=== PATIENT | female | born 1950 | race Caucasian/White ===

== ENCOUNTER 2022-04-13 09:17 | Emergency (ER) | payer MEDICARE, SELFPAY ==
[2022-04-13 09:54] VITALS: BP 174/97; PULSE 93; RESP 16; TEMP 36.6; O2SAT 98; BMI 25.7
[2022-04-13 09:56] LABS: Appearance Urine Clear (Clear); Bilirubin Urine Negative (Negative); Blood Urine Negative (Negative); Color Urine Yellow (Yellow); Glucose Urine Negative (Negative); Ketones Urine Negative (Negative); Leukocyte Esterase Urine Negative (Negative); Nitrite Urine Negative (Negative); Protein Urine Negative (Negative); Urobilinogen Urine 0.2 (0.2-1.0)
--- NOTE | 2022-04-13 10:01 | ED_ITS ---
HPI - General Adult General Time Seen by Provider: 10:02 Date Seen: 04/13/22 Chief complaint: Nausea/Vomiting Stated complaint: Nausea/frequent urination Time Seen by Provider: 04/13/22 10:00 Source: patient and RN notes reviewed Mode of arrival: ambulatory Limitations: no limitations History of Present Illness HPI narrative: Patient is a 72-year-old female coming in with concerns of weakness in her upper arms and on upper legs, nausea since having her COVID booster. 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 Alexander for this. She has also had some diarrhea the last few months but as of late that back down to normal. She historically would take something daily to help her bowels go but has not done so since January. She states she has seen her primary care provider as well as urgent care and both have done stool studies which were negative. However, the diarrhea seems to be back at [place]. She does feel hungry at times but just can not eat. She will have increased nausea and maybe some discomfort in the upper abdomen after eating. Basically the only thing she really tolerates are frozen fruit pops. She is able to drink. There has been no fevers. She just feels wiped out. No respiratory symptoms, no cardiac symptoms. She has not actually vomited. She was able to get in to the clinic tomorrow, does not see her director product and tell I believe she said May. The weakness made her more concerned. I reviewed with her that global weakness and weakness similarly affecting both sides it is not a stroke. She is relieved to hear this. She has noted some increased urinary frequency the last few days. Related Data Home Medications Medication Instructions Recorded Confirmed atorvastatin 10 mg tablet 10 mg PO DAILY 04/13/22 04/13/22 levothyroxine 88 mcg tablet 88 mcg PO DAILY 04/13/22 04/13/22 omeprazole 20 mg capsule,delayed 20 mg PO DAILY 04/13/22 04/13/22 release Allergies Allergy/AdvReac Type Severity Reaction Status Date / Time cefuroxime [From Ceftin] Allergy Mild Verified 04/13/22 09:59 sulfamethoxazole Allergy Mild Verified 04/13/22 09:59 [From Bactrim] trimethoprim [From Bactrim] Allergy Mild Verified 04/13/22 09:59 Review of Systems Status of ROS: Reports: 10 or more systems reviewed and unremarkable except as noted in History and below [facility] Social History Smoking Status: Never smoker Do you use any of these nicotine containing products: None Second hand tobacco smoke exposure: No How often do you have a drink containing alcohol: never How often do you have six or more drinks on one occasion: Never AUDIT-C Alcohol total score: 0 Non-prescribed substance use: denies use service: No Exam Const: Vital Signs, click to edit/add: Vital Signs - 24 hr 04/13/22 09:54 04/13/22 11:53 Temperature 97.9 F Pulse Rate [Right Pulse Oximeter] 93 Respiratory Rate 16 Blood Pressure [Le ft Upper Arm] 174/97 H Pulse Oximetry 98 99 Oxygen Delivery Me thod Room Air Documenting provider has reviewed patient's vital signs: yes Common normals: no apparent distress, average body habitus, oriented x3, no limitations , healthy appearing and alert General appearance: cooperative, comfortable and well kempt HENMT: Common normals: normocephalic, head/scalp atraumatic, hearing grossly normal bilaterally, external ears normal, external nose normal, nasal mucous membranes and turbinates normal, moist oral mucous membranes, oropharynx normal, dentition normal and gingiva normal Head and scalp: normocephalic and atraumatic Nose: external nose normal and nasal mucous membranes and t urbinates normal External ear: external ears normal Eye: Common normals: PERRL, EOMs intact bilaterally, conjunctivae normal and no scleral icterus Conjunctiva: conjunctiva(e) normal Pupil: PERRL Neck & C-Spine: Common normals: full ROM, no lymphadenopathy, supple, no meningeal signs, no JVD and thyroid normal Thyroid: thyroid normal Resp: Common normals: normal respiratory effort, no retractions, no use of accessory muscles and clear to auscultation bilaterally Auscultation: clear to auscultation bilaterally Cardio: Common normals: no JVD, regular rate, regular rhythm, S1 normal heart sound, S2 normal heart sound, no gallops, no clicks, no murmurs and no rub Rate: regular rate Rhythm: regular rhythm Heart sounds: S1 normal and S2 normal GI: Common normals: Normal to inspection, nondistended, normoactive bowel sounds present, soft to palpation, non-tender, no hepatosplenomegaly and no masses Palpation: soft and no hepatosplenomegaly Extremity: Common normals: normal to inspection, full ROM, normal capillary refill, no joint enlargement, no clubbing, cyanosis or edema, no calf tenderness and no pedal edema Neuro: Common normals: oriented x3, CN's II-XII intact bilaterally, moves all extremities, no focal motor deficits (Strength is 5/5 and symmetric throughout upper/lower extremities.), no sensory deficits noted and deep tendon reflexes 2+ bilaterally Sensorium/orientation: alert Meningeal signs: no meningeal signs Psych: Appearance: well kempt Skin: Common normals: no rashes or lesions noted General skin exam: no rashes or lesions noted Course Course Hospital Course: Will establish an IV, give her 500 mL normal saline 4 mg IV Zofran. We will check full complement of labs, consider thyroid, cardiac as well. Will obviously obtaining urinalysis. As for the diarrhea, this is not why she is here but did discuss with her that she should probably have an updated colonoscopy when she has her EGD. She does understand. Will see if we can find anything identifiable or treatable. Reevaluation(s) Reevaluation #1: Reviewed with patient is her normal laboratory evaluation. We will certainly let her know if the urine culture were to grow anything. At this time, I think she is safe to follow up outpatient. Her appointment with Dr. Alexander is actually this . I think that will be important for her, he can get her scheduled for EGD and colonoscopy if he deems necessary. She does have Zofran at home. She was concerned as her blood pressure had some elevated readings here but had come back down to systolic of 130s prior to discharge. I urged her to keep her clinic appointment tomorrow with her primary as well. Certainly at minimum blood pressure could be rechecked. Time: 12:21 Vital Signs Vital signs: Initial Vital Signs Temperature 97.9 F 04/13/22 09:54 Temperature Source Temporal Artery Scan 04/13/22 09:54 Pulse Rate 93 04/13/22 09:54 Pulse Rhythm 04/13/22 09:54 Respiratory Rate 16 04/13/22 09:54 Blood Pressure 174/97 H 04/13/22 09:54 Blood Pressure Mean 122 04/13/22 09:54 Blood Pressure Position Sitting 04/13/22 09:54 Pulse Oximetry 98 04/13/22 09:54 Oxygen Delivery Method 04/13/22 09:54 Vital Signs Temperature 97.9 F 04/13/22 09:54 Pulse Rate 93 04/13/22 09:54 Respiratory Rate 16 04/13/22 09:54 Blood Pressure 174/97 H 04/13/22 09:54 Pulse Oximetry 98 04/13/22 09:54 Oxygen Delivery Method 04/13/22 09:54 Temperature 97.9 F 04/13/22 09:54 Pulse Rate 93 04/13/22 09:54 Respiratory Rate 16 04/13/22 09:54 Blood Pressure 174/97 H 04/13/22 09:54 Pulse Oximetry 99 04/13/22 11:53 Oxygen Delivery Method 04/13/22 09:54 Medical Decision Making Lab Data Lab results reviewed: Yes I reviewed the patient's lab results Labs: Lab Results 04/13/22 04/13/22 04/13/22 Range/Units 09:30 10:09 10:40 WBC 5.52 (4.50-11.00) K/uL RBC 4.45 (4.00-5.20) m/uL Hgb 14.0 (12.0-16.0) gm/dL Hct 42.3 (33.0-51.0) % MCV 95 (80-100) fL MCH 32 (26-34) pg MCHC 33 (32-36) gm/dL RDW Coeff of Rupali 12.2 (11.5-15.5) % Plt Count 261 (140-440) K/uL Neut % (Auto) 71.7 (42.0-72.0) % Lymph % (Auto) 18.8 L (20-44) % [place] % (Auto) 7.4 (0.0-11.0) % Eos % (Auto) 0.9 (0.0-7.0) % Baso % (Auto) 0.7 (0.0-3.0) % Neut # (Auto) 3.95 (1.7-7.0) K/uL Lymph # (Auto) 1.00 (0.90-2.90) K/uL [place] # (Auto) 0.40 (0.00-0.90) K/UL Eos # (Auto) 0.05 (0.00-0.50) K/uL Baso # (Auto) 0.04 (0.00-0.30) K/uL Abs Immat Gran (auto) 0.03 (0.00-0.30) K/uL Sodium (135-149) mmol/L Potassium (3.6-5.1) mmol/L Chloride (96-114) mmol/L Carbon Dioxide (20-32) mmol/L BUN (7-30) mg/dL Creatinine (0.5-1.5) mg/dL Estimated Creat Clear Estimated GFR ml/min Glucose (60-115) mg/dL Lactate (0.5-1.9) mmol/L Calcium (8.4-10.6) mg/dL Total Bilirubin (0.1-1.5) mg/dL AST (12-35) U/L ALT (4-35) U/L Alkaline Phosphatase (40-150) U/L C-Reactive Protein (0.5-1.0) mg/dL Total Protein (6.0-8.3) g/dL Albumin (3.3-5.0) g/dL Lipase (23-300) U/L TSH (0.270-4.200) uIU/mL Urine Color Yellow (Yellow) Urine Appearance Clear (Clear) Urine pH 7.0 (5.0-8.5) Ur Specific [place] 1.010 (1.000-1.030) Urine Protein Negative (Negative) Urine Glucose (UA) Negative (Negative) Urine Ketones Negative (Negative) Urine Blood Negative (Negative) Urine Nitrite Negative (Negative) Urine Bilirubin Negative (Negative) Urine Urobilinogen 0.2 (0.2-1.0) Ur Leukocyte Esterase Negative (Negative) Urine RBC 0-2 (0-2) Urine WBC 0-2 (0-5) Ur Squamous Epith Cells None (None-Few) Urine Bacteria None (None) POC Troponin I 0.00 L (0.01-0.04) ng/ml 04/13/22 04/13/22 04/13/22 Range/Units 10:40 10:40 10:40 WBC (4.50-11.00) K/uL RBC (4.00-5.20) m/uL Hgb (12.0-16.0) gm/dL Hct (33.0-51.0) % MCV (80-100) fL MCH (26-34) pg MCHC (32-36) gm/dL RDW Coeff of Rupali (11.5-15.5) % Plt Count (140-440) K/uL Neut % (Auto) (42.0-72.0) % Lymph % (Auto) (20-44) % [place] % (Auto) (0.0-11.0) % Eos % (Auto) (0.0-7.0) % Baso % (Auto) (0.0-3.0) % Neut # (Auto) (1.7-7.0) K/uL Lymph # (Auto) (0.90-2.90) K/uL [place] # (Auto) (0.00-0.90) K/UL Eos # (Auto) (0.00-0.50) K/uL Baso # (Auto) (0.00-0.30) K/uL Abs Immat Gran (auto) (0.00-0.30) K/uL Sodium 139 (135-149) mmol/L Potassium 4.0 (3.6-5.1) mmol/L Chloride 105 (96-114) mmol/L Carbon Dioxide 26 (20-32) mmol/L BUN 10 (7-30) mg/dL Creatinine 0.7 (0.5-1.5) mg/dL Estimated Creat Clear 45.20 Estimated GFR 93 ml/min Glucose 138 H (60-115) mg/dL Lactate 1.0 (0.5-1.9) mmol/L Calcium 9.7 (8.4-10.6) mg/dL Total Bilirubin 0.6 (0.1-1.5) mg/dL AST 30 (12-35) U/L ALT 20 (4-35) U/L Alkaline Phosphatase 76 (40-150) U/L C-Reactive Protein < 0.5 L (0.5-1.0) mg/dL Total Protein 7.8 (6.0-8.3) g/dL Albumin 4.8 (3.3-5.0) g/dL Lipase 65 (23-300) U/L TSH 2.420 (0.270-4.200) uIU/mL Urine Color (Yellow) Urine Appearance (Clear) Urine pH (5.0-8.5) Ur Specific [place] (1.000-1.030) Urine Protein (Negative) Urine Glucose (UA) (Negative) Urine Ketones (Negative) Urine Blood (Negative) Urine Nitrite (Negative) Urine Bilirubin (Negative) Urine Urobilinogen (0.2-1.0) Ur Leukocyte Esterase (Negative) Urine RBC (0-2) Urine WBC (0-5) Ur Squamous Epith Cells (None-Few) Urine Bacteria (None) POC Troponin I (0.01-0.04) ng/ml ECG Data Attestation: I personally reviewed and interpreted this ECG as follows: (Sinus rhythm, 74 beats per minute, QT corrected 432 milliseconds. No concerning abnormality on this EKG.) Critical Care Time Critical Care Time Critical Care Time: No Discharge Plan Discharge Clinical Impression: Weakness, Nausea Patient Disposition: Home, Self-Care Condition: Stable Instructions: Acute Nausea and Vomiting (ED), Weakness (ED) Additional Instructions: Keep her upcoming appointments with your primary as well as her director product this week. Do think with your nausea that in the EGD should be scheduled in the near future but will defer to your director product. Can try your Zofran at home to help with nausea to allow oral intake. These sympt oms certainly could be post vaccination and would hopefully start to resolve. However, if you have worsening symptoms, develop a fever or abdominal pain and vomiting, please return to the ER for further evaluation. Activity Level: Activity as Tolerated Prescriptions: No Action atorvastatin 10 mg tablet 10 mg PO DAILY Label Comments: TAKE 1 TABLET BY MOUTH ONCE DAILY levothyroxine 88 mcg tablet 88 mcg PO DAILY Label Comments: TAKE 1 TABLET BY MOUTH ONCE DAILY omeprazole 20 mg capsule,delayed release(DR/EC) 20 mg PO DAILY Label Comments: TAKE 1 CAPSULE BY MOUTH ONCE DAILY BEFORE A MEAL Stand Alone Forms: [employer] Info Instructions
[2022-04-13 10:16] LABS: RBC Urine 0-2 (0-2); WBC Urine 0-2 (0-5)
[2022-04-13] MEDS: 0.9 % SODIUM CHLORIDE 500 ML 500 ML IV (10:52)
[2022-04-13] MEDS: ONDANSETRON 2 MG/ML inj 4 MG IVP (10:54)
[2022-04-13 11:00] VITALS: BP 141/78; PULSE 77; RESP 20; O2SAT 95
[2022-04-13 11:00] LABS: Basophils Absolute Auto 0.04 K/uL (0.00-0.30); Basophils Percent Auto 0.7 % (0.0-3.0); Eosinophils Absolute Auto 0.05 K/uL (0.00-0.50); Eosinophils Percent Auto 0.9 % (0.0-7.0); Hematocrit 42.3 % (33.0-51.0); Immature Granulocytes Abs Auto 0.03 K/uL (0.00-0.30); Lymphocytes Percent Auto 18.8 % (20-44); Mean Corpuscular HGB Conc 33 gm/dL (32-36); Mean Corpuscular Hemoglobin 32 pg (26-34); Mean Corpuscular Volume 95 fL (80-100); Monocytes Percent Auto 7.4 % (0.0-11.0); Neutrophils Absolute Auto 3.95 K/uL (1.7-7.0); Neutrophils Percent Auto 71.7 % (42.0-72.0); Platelet Count* 261 K/uL (140-440); RDW Coefficient of Variation % 12.2 % (11.5-15.5); Red Blood Count 4.45 m/uL (4.00-5.20); White Blood Count* 5.52 K/uL (4.50-11.00)
[2022-04-13 11:08] LABS: Slide Review Reflex No
[2022-04-13 11:20] LABS: Albumin* 4.8 g/dL (3.3-5.0); Chloride* 105 mmol/L (96-114)
[2022-04-13 11:21] LABS: Sodium* 139 mmol/L (135-149)
[2022-04-13 11:23] LABS: Aspartate Amino Transferase* 30 U/L (12-35); Bilirubin Total* 0.6 mg/dL (0.1-1.5); Carbon Dioxide* 26 mmol/L (20-32); Creatinine* 0.7 mg/dL (0.5-1.5); Estimated Glomerular Filt Rate 93 ml/min; Total Protein* 7.8 g/dL (6.0-8.3)
[2022-04-13 11:24] LABS: Alanine Aminotransferase* 20 U/L (4-35); Alkaline Phosphatase* 76 U/L (40-150); Blood Urea Nitrogen* 10 mg/dL (7-30); Calcium* 9.7 mg/dL (8.4-10.6); Glucose* 138 mg/dL (60-115); Lipase* 65 U/L (23-300)
[2022-04-13 11:30] VITALS: BP 135/75; PULSE 70; RESP 18; O2SAT 95
[2022-04-13 11:43] LABS: C Reactive Protein* < 0.5 mg/dL (0.5-1.0)
[2022-04-13 11:53] VITALS: O2SAT 99
== END 2022-04-13 12:35 | disposition home or self-care (01) ==
PROVIDERS: Emergency Provider Family Medicine; PCP Family Medicine
DX: R53.1 Weakness (principal); R11.0 Nausea
CPT/HCPCS: 36415; 80053; 81001; 83605; 83690; 84443; 84484; 85025; 86140; 87086; 93005; 94761; 96361; 96374; 99284; J2405; J7120

== ENCOUNTER 2023-04-08 08:20 | Outpatient (CLI) | payer MEDICARE, SELFPAY ==
--- NOTE | 2023-04-08 08:45 | CRLHL7_ITS ---
For Patients: As a result of the Cures Act, medical imaging exams and procedure reports are released immediately into your electronic medical record. You may view this report before your referring provider. If you have questions, please contact your health care provider. DIGITAL DIAGNOSTIC BILATERAL MAMMOGRAM USING TOMOSYNTHESIS AND COMPUTER-AIDED DETECTION RIGHT BREAST ULTRASOUND CLINICAL HISTORY: RIGHT breast pain. COMPARISON: 07/29/2022, 06/25/2021, 03/27/2020. TECHNIQUE: Digital BILATERAL mammogram in four projections. Tomosynthesis and CAD utilized. Real-time ultrasound imaging of RIGHT breast with imaging documentation. BREAST COMPOSITION: The breasts are almost entirely fatty. FINDINGS: 3D CC/MLO BILATERAL mammogram images submitted. No suspicious masses or architectural distortion. No suspicious calcifications or adenopathy. Targeted RIGHT breast ultrasound performed in the area of concern within the RIGHT axillary tail region. Normal breast tissue is present. No suspicious findings. IMPRESSION: Normal BILATERAL mammograms and normal targeted RIGHT breast ultrasound. No evidence of malignancy. RECOMMENDATIONS: Annual BILATERAL screening mammography. Results and recommendations discussed with the patient. BI-RADS Category 1: Negative A lay language report of this examination will be provided to the patient. Dictated by Fredrick Mckenna MD @ 04/08/2023 9:54:49 AM jj/Dictated by: Fredrick Mckenna MD @ 04/08/2023 9:54:00 AM (Electronically Signed)
--- NOTE | 2023-04-08 09:15 | CRLHL7_ITS ---
For Patients: As a result of the Cures Act, medical imaging exams and procedure reports are released immediately into your electronic medical record. You may view this report before your referring provider. If you have questions, please contact your health care provider. PLEASE SEE DIGITAL DIAGNOSTIC BILATERAL MAMMOGRAM PERFORMED SAME DAY CRL:[email or web address] [email or web address]/Dictated by: Fredrick Mckenna MD @ 04/08/2023 9:54:00 AM (Electronically Signed)
== END 2023-04-08 08:21 | disposition home or self-care (01) ==
LOC: MAMMO 08:30
PROVIDERS: PCP Family Medicine; Visit Provider Family Medicine
DX: N64.4 Mastodynia (principal)
CPT/HCPCS: 76642; 77066; G0279

== ENCOUNTER 2023-12-17 09:11 | Outpatient (CLI) | payer MEDICARE, SELFPAY ==
[2023-12-17 09:39] LABS: Creatinine* 0.8 mg/dL (0.5-1.5); Estimated Glomerular Filt Rate 79 ml/min
--- NOTE | 2023-12-17 10:00 | CRLHL7_ITS ---
For Patients: As a result of the Century Cures Act, medical imaging exams and procedure reports are released immediately into your electronic medical record. You may view this report before your referring provider. If you have questions, please contact your health care provider. INDICATION: Right abdominal pain. COMPARISON: None available. TECHNIQUE: CT mm pelvis with IV contrast. ICD 370, 74 cc. FINDINGS: Liver and gallbladder: Cholecystectomy clips. Normal liver. Spleen: Unremarkable. Pancreas: Unremarkable. Adrenal glands: Normal. Kidneys ureter bladder: No renal masses. No renal calculi. No hydronephrosis. Normal bladder. Pelvis: Unremarkable. GI: No abnormal bowel distention, bowel wall thickening or focal inflammatory change. The appendix is not definitely identified. Peritoneal: No free air or free fluid. Lymph nodes: No adenopathy. Vascular: Scattered calcifications. Normal caliber abdominal aorta. Abdominal wall: No focal hernias. Lung bases: Clear. Skeletal: Normal alignment. No fractures. IMPRESSION: 1. No acute findings. 2. No abnormal bowel distention, bowel wall thickening or focal inflammatory change. 3. No free air or free fluid Please note that all CT scans at this facility use dose modulation, iterative reconstruction, and/or weight-based dosing when appropriate to reduce radiation dose to as low as reasonably achievable. Dictated by Mason Morales MD @ 12/19/2023 2:25:18 PM (Electronically Signed)
== END 2023-12-17 09:12 | disposition home or self-care (01) ==
PROVIDERS: PCP Family Medicine; Visit Provider Physician Assistant
DX: R10.9 Unspecified abdominal pain (principal)
CPT/HCPCS: 36415; 74177; 82565; Q9967

== ENCOUNTER 2024-01-03 11:39 | Emergency (ER) | payer MEDICARE, SELFPAY ==
[2024-01-03 11:53] VITALS: BP 159/100; PULSE 95; RESP 94; TEMP 36.7; O2SAT 98; BMI 25.7
[2024-01-03 13:53] VITALS: BP 155/90; PULSE 87; RESP 16; TEMP 36.7; O2SAT 99
--- NOTE | 2024-01-03 15:45 | ED_ITS ---
HPI - General Adult General Date Seen: 01/03/24 Chief complaint: Weakness Stated complaint: Chest pain, dizziness, weakness Time Seen by Provider: 01/03/24 15:33 History of Present Illness HPI narrative: This is a 73-year-old female who was referred to the ER today from clinic for evaluation of chest pain. She is currently under treatment for Helicobacter pylori and is on her 13th day of antibiotics and meds. Per medical record she was in the ER in April 2022. At that time records indicate that she has a history of Escamilla's esophagus, hypothyroidism. Per [facility] she has a past medical history of hypothyroidism, high cholesterol, irritable bowel syndrome, Escamilla's esophagus, arthritis, sciatica, trigeminal neuralgia. Med list includes Fosamax Lipitor clarithromycin Synthroid Flagyl omeprazole 40 mg daily Zofran MiraLax Carafate Per record she came to clinic this morning scheduled for an outpatient stress echo to continue workup for her heart. However she is having symptoms of extreme nausea, dizziness, lightheadedness, weakness. CT abd pelvis 12/17/23 FINDINGS: Liver and gallbladder: Cholecystectomy clips. Normal liver. Splen: Unremarkable. Pancreas: Unremarkable. Adrenal glands: Normal. Kidneys ureter bladder: No renal masses. No renal calculi. No hydronephrosis. Normal bladder. Pelvis: Unremarkable. GI: No abnormal bowel distention, bowel wall thickening or focal inflammatory change. The appendix is not definitely identified. Peritoneal: No free air or free fluid. Lymph nodes: No adenopathy. Vascular: Scattered calcifications. Normal caliber abdominal aorta. Abdominal wall: No focal hernias. Lung bases: Clear. Skeletal: Normal alignment. No fractures. IMPRESSION: 1. No acute findings. 2. No abnormal bowel distention, bowel wall thickening or focal inflammatory change. 3. No free air or free fluid Per [facility] Notes from today Patient came into the clinic today with extreme nausea, dizzy, lightheaded, very weak. She is supposed to do a stress echo rule out her heart and CP. ? Pain under left breast she states pain 3-4/10 today. Sometimes it's less pain. But today complaining it's a 3-4/10 at rest. (Has hyplori on meds.) ? BP 176/84 today. BP elevated at baseline in clinic with feeling ill. Patient states, I don't think I can do the Treadmill test today. I am not feeling well at all today. She states , I don't know if I can walk on the treadmill I'm so weak and dizzy. ? Consulted with Dr. Mcclelland stress reader. We won't get a good test if patient is sick today. Patient is safety risk on the Treadmill if she is dizzy and lightheaded and nausea. Feels like she could vomit today but hasn't yet. She can come back and do the stress echo when she is feeling better to get a good test. ? Patient will go to ER now. She doesn't feel well at all. She is even concerned why she isn't getting better with the hyplori. ? Advised she shouldn't drive. Get a family member to drive her. On day 13 of day 14 of antibiotics for Hyplori. Not better at all on antibiotics. She will get upper abdominal pain/ pain under left breast History per patient is that she has been feeling ill for the past 2 or 3 weeks. She says that there was a problem with her pipes or her water supply and she may be exposed to excess Mangen[place]. She has been experiencing symptoms of upper abdominal pain, left lower chest discomfort, nausea, dizziness for the past few weeks. She was already diagnosed with Helicobacter pylori based on the stool test through her primary care provider and has been on a course of antibiotics, Carafate, ppi. She does not really feel like her symptoms are getting much better. Symptoms 1st started with right upper quadrant pain wrapping around to her right flank but have since then have been more in the left upper quadrant. Also she gets pain in her left lower ribs. No clear relationship to exertion or activity. She has been feeling run down, tired, weak. No swelling in her legs. No fever or chills. No cough. No sore throat. No headache. No back pain. Not much lower abdominal pain. Urination has been normal. No dysuria, urgency, frequency. Related Data Home Medications ?Medication ?Instructions ?Recorded ?Confirmed atorvastatin 10 mg tablet 10 mg PO DAILY 04/13/22 04/13/22 levothyroxine 88 mcg tablet 88 mcg PO DAILY 04/13/22 04/13/22 omeprazole 20 mg capsule,delayed 20 mg PO DAILY 04/13/22 04/13/22 release Previous Rx's ?Medication ?Instructions ?Recorded ondansetron 4 mg disintegrating 4 mg PO Q8H PRN nausea and 04/13/22 tablet vomiting #20 tabs Allergies Allergy/AdvReac Type Severity Reaction Status Date / Time cefuroxime [From Ceftin] Allergy Mild Verified 12/17/23 10:21 sulfamethoxazole Allergy Mild Verified 12/17/23 10:21 [From Bactrim] trimethoprim [From Bactrim] Allergy Mild Verified 12/17/23 10:21 PFSH PFSH Social History Smoking Status: Never smoker Do you use any of these nicotine containing products: None Second hand tobacco smoke exposure: No How often do you have a drink containing alcohol: never How often do you have six or more drinks on one occasion: Never AUDIT-C Alcohol total score: 0 Non-prescribed substance use: denies use service: No Exam Narrative: Exam Narrative: Constitutional: Appears well-developed and well-nourished. Alert. Conversant. Non toxic. HENT: Head: Atraumatic. Nose: Nose normal. Mouth/Throat: Oral mucosa is clear and moist. no trismus. Pharynx normal. Tonsils symmetric. No tonsillar enlargement, erythema, or exudate. Eyes: Conjunctivae normal. EOM normal. Pupils equal, round, and reactive to light. No scleral icterus. Neck: Normal range of motion. Neck supple. No tracheal deviation present. Cardiovascular: Normal rate, regular rhythm. No gallop. No friction rub. No murmur heard. Symmetric radial artery pulses Pulmonary/Chest: Effort normal. No stridor. No respiratory distress. No wheezes. No rales. No rhonchi . No tenderness. No chest wall shingles. Abdominal: Soft. Bowel sounds normal. No distension. No mass. Left upper quadrant and epigastric> right upper quadrant and lower tenderness. No rebound. No guarding. No CVA tenderness Musculoskeletal: RUE: Normal range of motion. No tenderness. No deformity LUE: Normal range of motion. No tenderness. No deformity RLE: Normal range of motion. No edema. No tenderness. No deformity LLE: Normal range of motion. No edema. No tenderness. No deformity Neurological: Alert and oriented to person, place, and time. Normal strength. CN II-VII intact. No sensory deficit. GCS eye subscore is 4. GCS verbal subscore is 5. GCS motor subscore is 6. Normal coordination Skin: Skin is warm and dry. No rash noted. No pallor. Normal capillary refill. Psychiatric: Normal mood. Normal affect. Const: Vital Signs, click to edit/add: Vital Signs - 24 hr 01/03/24 11:53 01/03/24 13:53 Temperature 98.1 F 98.0 F Pulse Rate [Right Pulse Oximeter] 95 87 Respiratory Rate 94 H 16 Blood Pressure [Ri ght Upper Arm] 159/100 H 155/90 H Pulse Oximetry 98 99 Oxygen Delivery Me thod Room Air Room Air Course Vital Signs Vital signs: Initial Vital Signs Temperature 98.1 F 01/03/24 11:53 Temperature Source Temporal Artery Scan 01/03/24 11:53 Pulse Rate 95 01/03/24 11:53 Pulse Rhythm Regular 01/03/24 11:53 Respiratory Rate 94 H 01/03/24 11:53 Blood Pressure 159/100 H 01/03/24 11:53 Blood Pressure Mean 119 H 01/03/24 11:53 Blood Pressure Position Sitting 01/03/24 11:53 Pulse Oximetry 98 01/03/24 11:53 Oxygen Delivery Method Room Air 01/03/24 11:53 Vital Signs Temperature 98.1 F 01/03/24 11:53 Pulse Rate 95 01/03/24 11:53 Respiratory Rate 94 H 01/03/24 11:53 Blood Pressure 159/100 H 01/03/24 11:53 Pulse Oximetry 98 01/03/24 11:53 Oxygen Delivery Method Room Air 01/03/24 11:53 Temperature 98.0 F 01/03/24 13:53 Pulse Rate 87 01/03/24 13:53 Respiratory Rate 16 01/03/24 13:53 Blood Pressure 155/90 H 01/03/24 13:53 Pulse Oximetry 99 01/03/24 13:53 Oxygen Delivery Method Room Air 01/03/24 13:53 Medications Administered Medications: Discontinued Medications Generic Name Dose Route Start Last Admin Trade Name Freq PRN Reason Stop Dose Admin Sodium Chloride 1,000 mls @ 1,000 mls/hr 01/03/24 18:00 01/03/24 19:43 0.9 % Sodium Chloride 1000 Ml IV 01/03/24 18:59 Infused .Q1H LEXUS Infusion Lidocaine/Aluminum/Magnesium/Simeth 30 ml 01/03/24 17:50 01/03/24 18:37 Gi Cocktail (Visc Lido/Antacid) 30 Ml PO 01/03/24 17:51 30 ml ONCE ONE Administration Metoclopramide HCl 10 mg 01/03/24 17:50 01/03/24 18:25 Metoclopramide Hcl 5 Mg/Ml Inj IVP 01/03/24 17:51 10 mg ONCE ONE Administration Medical Decision Making MDM Narrative Medical decision making narrative: This is a very pleasant 73-year-old female referred to the ER today from her primary care clinic at [facility] for evaluation of ongoing weakness, fatigue, upper abdominal pain, nausea, and also left lower rib pain/left chest pain ongoing for the past few weeks. She was actually scheduled for an outpatient stress test to be done today but was just feeling too unwell to complete the stress test. Differential is broad. She is predominantly experiencing GI upset, and upper abdominal pain. Initially was right upper quadrant a couple of weeks ago but now is predominantly left upper quadrant and epigastric. She is already on treatment for H pylori after having a positive H pylori stool antigen and her primary care clinic. Differential would include gastritis, peptic ulcer disease, duodenal ulcer. Workup here does not show any evidence for GI bleeding. With stable laboratory workup and normal CT abdomen pelvis a couple of weeks ago, and nonsurgical exam, I have low suspicion for per ulcer. Consider possible pancreatitis but lipase is normal. LFTs mildly abnormal of unclear significant. No recent LFTs for comparison. She is not really having much pain localizing to right upper quadrant. As she is already status post cholecystectomy. Lipase normal. Consider other causes of pain such as colitis, diverticulitis. She has had previous appendectomy. Consider possible repeat CT scan but with reassuring labs and recent normal CT scan we decided to hold off on reimaging. Chest x-ray shows no evidence for pneumonia, rib fracture, pleural effusion causing her left lower chest pain. EKG nonischemic. Troponin normal. D-dimer is normal. No exertional component to chest pain, to suggest unstable angina. Nonetheless would recommend outpatient follow-up to complete her stress test. She is feeling somewhat better after GI cocktail and nausea meds and IV fluids here in the ER. She is comfortable discharging to home. Discussed need for outpatient workup through her clinic consider possible EGD to either confirm or rule out peptic ulcer disease ago as cause for symptoms. She will continue on treatment of her H pylori for now. Precautions for return to the ED are reviewed and questions answered. Lab Data Labs: Lab Results 01/03/24 01/03/24 Range/Units 18:00 18:21 WBC 5.75 (4.50-11.00) K/uL RBC 4.55 (4.00-5.20) m/uL Hgb 14.7 (12.0-16.0) gm/dL Hct 44.2 (33.0-51.0) % MCV 97 (80-100) fL MCH 32 (26-34) pg MCHC 33 (32-36) gm/dL RDW Coeff of Rupali 12.4 (11.5-15.5) % Plt Count 279 (140-440) K/uL Neut % (Auto) 61.4 (42.0-72.0) % Lymph % (Auto) 27.5 (20-44) % [place] % (Auto) 9.2 (0.0-11.0) % Eos % (Auto) 1.0 (0.0-7.0) % Baso % (Auto) 0.9 (0.0-3.0) % Neut # (Auto) 3.53 (1.7-7.0) K/uL Lymph # (Auto) 1.58 (0.90-2.90) K/uL [place] # (Auto) 0.50 (0.00-0.90) K/UL Eos # (Auto) 0.06 (0.00-0.50) K/uL Baso # (Auto) 0.05 (0.00-0.30) K/uL Abs Immat Gran (auto) 0.00 (0.00-0.30) K/uL Imm/Tot Granulo (auto) 0.0 % D-Dimer Quant (PE/DVT) 0.33 (0.00-0.50) ug/ml Sodium 141 (135-149) mmol/L Potassium 3.9 (3.6-5.1) mmol/L Chloride 104 (96-114) mmol/L Carbon Dioxide 27 (20-32) mmol/L Anion Gap 10 (7-15) mEq/L BUN 8 (7-30) mg/dL Creatinine 0.7 (0.5-1.5) mg/dL Estimated Creat Clear 44.56 Estimated GFR 92 ml/min Glucose 123 H (60-115) mg/dL Calcium 9.6 (8.4-10.6) mg/dL Total Bilirubin 0.7 (0.1-1.5) mg/dL AST 69 H (12-35) U/L ALT 66 H (4-35) U/L Alkaline Phosphatase 56 (40-150) U/L Total Protein 8.4 H (6.0-8.3) g/dL Albumin 5.3 H (3.3-5.0) g/dL Lipase 116 (23-300) U/L Urine Color Yellow (Yellow) Urine Appearance Clear (Clear) Urine pH 6.5 (5.0-8.5) Ur Specific [place] 1.015 (1.000-1.030) Urine Protein Negative (Negative) Urine Glucose (UA) Negative (Negative) Urine Ketones Negative (Negative) Urine Blood Negative (Negative) Urine Nitrite Negative (Negative) Urine Bilirubin Negative (Negative) Urine Urobilinogen 0.2 (0.2-1.0) Ur Leukocyte Esterase Negative (Negative) Urine RBC 0-2 (0-2) Urine WBC 0-2 (0-5) Ur Squamous Epith Cells None (None-Few) Urine Bacteria None (None) ECG Data Attestation: I personally reviewed and interpreted this ECG as follows: Interpretation: Normal sinus rhythm Rate: 81 MA: 154 QRS axis: Normal axis ST segment/T wave: no ST segment elevation or depression QTc: 429 Discharge Plan Discharge Clinical Impression: Weakness, Abdominal pain, LUQ, Chest pain Patient Disposition: Home, Self-Care Condition: Stable Instructions: Chest Pain (DC), Weakness (ED), Abdominal Pain (ED) Additional Instructions: As we discussed, please come back to the ER right away if you have any worsening symptoms such as worsening pain in your chest, trouble breathing, weakness, d francisco spells, or fainting. If your abdominal pain gets worse or you have bloody vomit or bloody stool, come back to the ER right away. Please recheck with your regular doctor within the next 1-3 days and follow up for a stress test as soon as possible. Continue on your antibiotics and treatment for H pylori for now. Prescriptions: No Action atorvastatin 10 mg tablet 10 mg PO DAILY Patient Comments: TAKE 1 TABLET BY MOUTH ONCE DAILY levothyroxine 88 mcg tablet 88 mcg PO DAILY Patient Comments: TAKE 1 TABLET BY MOUTH ONCE DAILY omeprazole 20 mg capsule,delayed release(DR/EC) 20 mg PO DAILY Patient Comments: TAKE 1 CAPSULE BY MOUTH ONCE DAILY BEFORE A MEAL ondansetron 4 mg tablet,disintegrating 4 mg PO Q8H PRN (Reason: nausea and vomiting) Qty: 20 0RF Follow Up/Referrals: Danielle Hurtado MD [Primary Care Provider] - Stand Alone Forms: [employer] Info Instructions
--- NOTE | 2024-01-03 17:50 | CRLHL7_ITS ---
For Patients: As a result of the Century Cures Act, medical imaging exams and procedure reports are released immediately into your electronic medical record. You may view this report before your referring provider. If you have questions, please contact your health care provider. INDICATION: Chest pain. TECHNIQUE: Chest 2 view(s) COMPARISON: None available. FINDINGS: Cardiomediastinal silhouette and pulmonary vasculature are normal. No focal consolidation. No layering pleural effusion. No pneumothorax. Multilevel degenerative changes of the visualized spine. IMPRESSION: No focal consolidation. Dictated by Amarjit Fung MD @ 01/03/2024 7:00:18 PM (Electronically Signed)
[2024-01-03 18:14] LABS: Appearance Urine Clear (Clear); Bilirubin Urine Negative (Negative); Blood Urine Negative (Negative); Color Urine Yellow (Yellow); Glucose Urine Negative (Negative); Ketones Urine Negative (Negative); Leukocyte Esterase Urine Negative (Negative); Nitrite Urine Negative (Negative); Protein Urine Negative (Negative); Specific Gravity Urine 1.015 (1.000-1.030); Urobilinogen Urine 0.2 (0.2-1.0); pH Urine 6.5 (5.0-8.5)
[2024-01-03 18:22] LABS: RBC Urine 0-2 (0-2); WBC Urine 0-2 (0-5)
[2024-01-03] MEDS: 0.9 % SODIUM CHLORIDE 1000 ml 1,000 ML IV (18:24)
[2024-01-03] MEDS: METOCLOPRAMIDE HCL 5 MG/ML INJ 10 MG IVP (18:25)
[2024-01-03] MEDS: GI COCKTAIL (VISC LIDO/ANTACID) 30 ML PO (18:37)
[2024-01-03 18:58] LABS: Hematocrit 44.2 % (33.0-51.0); Hemoglobin* 14.7 gm/dL (12.0-16.0); Lymphocytes Percent Auto 27.5 % (20-44); Mean Corpuscular HGB Conc 33 gm/dL (32-36); Mean Corpuscular Hemoglobin 32 pg (26-34); Mean Corpuscular Volume 97 fL (80-100); Monocytes Percent Auto 9.2 % (0.0-11.0); Neutrophils Percent Auto 61.4 % (42.0-72.0); Platelet Count* 279 K/uL (140-440); RDW Coefficient of Variation % 12.4 % (11.5-15.5); Red Blood Count 4.55 m/uL (4.00-5.20); White Blood Count* 5.75 K/uL (4.50-11.00)
[2024-01-03 18:59] LABS: Basophils Absolute Auto 0.05 K/uL (0.00-0.30); Basophils Percent Auto 0.9 % (0.0-3.0); Eosinophils Absolute Auto 0.06 K/uL (0.00-0.50); Lymphocytes Absolute Auto 1.58 K/uL (0.90-2.90); Neutrophils Absolute Auto 3.53 K/uL (1.7-7.0)
[2024-01-03 19:15] LABS: Slide Review Reflex No
[2024-01-03 19:16] LABS: Albumin* 5.3 g/dL (3.3-5.0); Chloride* 104 mmol/L (96-114)
[2024-01-03 19:17] LABS: Potassium* 3.9 mmol/L (3.6-5.1); Sodium* 141 mmol/L (135-149)
[2024-01-03 19:19] LABS: Anion Gap 10 mEq/L (7-15); Bilirubin Total* 0.7 mg/dL (0.1-1.5); Carbon Dioxide* 27 mmol/L (20-32); Creatinine* 0.7 mg/dL (0.5-1.5); Est. Creatinine Clearance* 44.56; Estimated Glomerular Filt Rate 92 ml/min
[2024-01-03 19:20] LABS: Alanine Aminotransferase* 66 U/L (4-35); Alkaline Phosphatase* 56 U/L (40-150); Aspartate Amino Transferase* 69 U/L (12-35); Blood Urea Nitrogen* 8 mg/dL (7-30); Calcium* 9.6 mg/dL (8.4-10.6); Glucose* 123 mg/dL (60-115); Lipase* 116 U/L (23-300); Total Protein* 8.4 g/dL (6.0-8.3)
[2024-01-03 19:21] LABS: D Dimer Quantitative* 0.33 ug/ml (0.00-0.50)
== END 2024-01-03 20:00 | disposition home or self-care (01) ==
PROVIDERS: Emergency Provider Emergency Medicine; PCP Family Medicine
DX: R07.9 Chest pain, unspecified (principal); R10.12 Left upper quadrant pain; R53.1 Weakness
CPT/HCPCS: 36415; 71046; 80053; 81001; 83690; 85025; 85379; 93005; 99284; 99285; A9270; J2765; J7030

== ENCOUNTER 2024-01-28 12:09 | Outpatient (CLI) | payer MEDICARE, SELFPAY ==
--- NOTE | 2024-01-28 12:45 | W.ANESCHARGE ---
Anesthesia Charges Start Date/Time Anesthesia Start Date: 01/28/24 Anesthesia Start Time: 13:32 Stop Date/Time Anesthesia Stop Date: 01/28/24 Anesthesia Stop Time: 13:55 Summary Extremes of Age - Over 70 or under 1: MDA
--- NOTE | 2024-01-28 14:51 | W.ANESCHARGE ---
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
== END 2024-01-28 12:10 | disposition home or self-care (01) ==
LOC: OP CLINIC 12:10
PROVIDERS: PCP Family Medicine; Visit Provider Internal Medicine Gastroenterology
DX: R10.11 Right upper quadrant pain (principal); K22.70 Barrett's esophagus without dysplasia; K29.70 Gastritis, unspecified, without bleeding; R10.13 Epigastric pain
CPT/HCPCS: 00731; 43239; 88305; 99100; J2704